=== PATIENT | male | born 1975 | race Two or more races ===

== ENCOUNTER 2023-04-15 15:15 | Emergency (ER) | payer MEDICAID ==
[~2023-04-15] VITALS: Ht 165.1 cm; Wt 63.5 kg
[2023-04-15 16:39] VITALS: BP 146/93; TEMP 97.9; O2SAT 98
== END 2023-04-15 17:30 | disposition left against medical advice (07) ==
LOC: ER 15:19
DX: S61.210A Laceration without foreign body of right index finger without damage to nail, initial encounter (principal); Z53.21 Procedure and treatment not carried out due to patient leaving prior to being seen by health care provider; W22.8XXA Striking against or struck by other objects, initial encounter; Y93.89 Activity, other specified; Y92.89 Other specified places as the place of occurrence of the external cause; Y99.8 Other external cause status